=== PATIENT | female | born 1965 | race Caucasian/White ===

== ENCOUNTER 2023-03-16 10:55 | Emergency (ER) | payer OTHER, SELFPAY ==
[2023-03-16 11:22] VITALS: BP 122/81; PULSE 71; RESP 18; TEMP 36.5; O2SAT 97
--- NOTE | 2023-03-16 11:35 | ED_ITS ---
HPI - General Adult General Chief complaint: Unspecified Complaint, Adult Stated complaint: Covid Positive Time Seen by Provider: 03/16/23 11:21 History of Present Illness HPI narrative: This 57-year-old female comes in because she tested positive for COVID. She states that she has symptoms of nasal congestion and occasional cough but otherwise feels okay. She does arrive with normal vital signs. She is a kidney transplant recipient and was instructed by her [place] clinicians to come to the nearest ER to receive remdesivir as she is not a candidate for Paxil of it. Related Data Allergies Allergy/AdvReac Type Severity Reaction Status Date / Time lisinopril Allergy Mild Verified 03/16/23 11:26 Penicillins Allergy Mild Verified 03/16/23 11:26 Review of Systems Status of ROS: Reports: 10 or more systems reviewed and unremarkable except as noted in History and below Narrative: Constitutional: No fevers, no weight gain or loss. Eyes: No discharge. No vision changes. HENT: No sore throat, no ear pain. She reports nasal congestion. Cardiovascular: No chest pain, no palpitations. Respiratory: No shortness of breath, no wheezes. Gastrointestinal: No abdominal pain, no vomiting, no diarrhea. Genitourinary: No dysuria, no hematuria. Musculoskeletal: Normal range of motion. Skin: No rashes, no pruritis. Neurological: No dizziness, weakness, sensory change, speech change. Endo/Heme/Allergies: No bruising or bleeding. No polydipsia. Pysch: no suicidality, no anxiety, no insomnia. All other systems reviewed and are negative. Exam Narrative: Exam Narrative: Constitutional: Well-developed, well-nourished, no acute distress. HEENT: Normocephalic, atraumatic. Neck: Normal range of motion. Nontender. Supple. Heart: Regular. No murmurs. Normal rate. Intact distal pulses. Lungs: Clear to auscultation. No chest discomfort. No wheezes, rhonchi, or rales. Abdomen: Normal bowel sounds. Nontender. No rebound tenderness. Genitalia: Deferred. Back: No midline tenderness. Normal range of motion. Extremities: Normal range of motion. No injury. Skin: Intact. No rash. Warm. No erythema or pallor. Neurologic: No altered sensation. No weakness. Alert and oriented. Psychiatric: No suicidality. No anxiety or depression. No insomnia. Nursing notes and vitals signs are reviewed. Const: Vital Signs, click to edit/add: Vital Signs - 24 hr 03/16/23 11:22 Temperature 97.7 F Pulse Rate [Right Pulse Oximeter] 71 Respiratory Rate 18 Blood Pressure [Ri ght Upper Arm] 122/81 Pulse Oximetry 97 Oxygen Delivery Me thod Room Air Course Vital Signs Vital signs: Initial Vital Signs Temperature 97.7 F 03/16/23 11:22 Temperature Source Temporal Artery Scan 03/16/23 11:22 Pulse Rate 71 03/16/23 11:22 Pulse Rhythm Regular 03/16/23 11:22 Pulse Strength 3+ Normal 03/16/23 11:22 Respiratory Rate 18 03/16/23 11:22 Blood Pressure 122/81 03/16/23 11:22 Blood Pressure Mean 94 03/16/23 11:22 Pulse Oximetry 97 03/16/23 11:22 Oxygen Delivery Method Room Air 03/16/23 11:22 Vital Signs Temperature 97.7 F 03/16/23 11:22 Pulse Rate 71 03/16/23 11:22 Respiratory Rate 18 03/16/23 11:22 Blood Pressure 122/81 03/16/23 11:22 Pulse Oximetry 97 03/16/23 11:22 Oxygen Delivery Method Room Air 03/16/23 11:22 Temperature 97.7 F 03/16/23 11:22 Pulse Rate 71 03/16/23 11:22 Respiratory Rate 18 03/16/23 11:22 Blood Pressure 122/81 03/16/23 11:22 Pulse Oximetry 97 03/16/23 11:22 Oxygen Delivery Method Room Air 03/16/23 11:22 Medical Decision Making MDM Narrative Medical decision making narrative: This patient is a kidney transplant recipient who is now positive for COVID. She received the initial loading dose of remdesivir intravenously. An order is in place for 2 more doses each of the next 2 days. The patient has normal vital signs and is in no acute distress. She is okay to be discharged today and will return he to the next 2 days for a nurse's visit to administer the next 2 doses of remdesivir. Discharge Plan Discharge Clinical Impression: COVID-19 Patient Disposition: Home, Self-Care Additional Instructions: Return each of the next 2 days for subsequent dosings of remdesivir. Use [id number] medicines also as needed and directed. Follow up with MD or return otherwise if worsening. Stand Alone Forms: [employer] Info Instructions
== END 2023-03-16 13:30 | disposition home or self-care (01) ==
LOC: ED 12:13
PROVIDERS: Emergency Provider Emergency Medicine Emergency Medical Services; PCP Family Medicine
DX: U07.1 COVID-19 (principal)
CPT/HCPCS: 99283; 99284; J7050

== ENCOUNTER 2023-03-18 11:03 | Outpatient (RCR) | payer OTHER, SELFPAY ==
[2023-03-17 11:45] VITALS: BP 105/68; PULSE 80; RESP 16; TEMP 36.8; O2SAT 95
[2023-03-17 13:10] VITALS: BP 108/68; PULSE 68; RESP 16; TEMP 36.8; O2SAT 96
--- NOTE | 2023-03-17 13:19 | PC.NURSE ---
tolerated infusion. VSS. pt to return to floor 03/18 at 1130 for next dose. IV remains in left AC, patent, wrapped with coban for tmws infusion.
[2023-03-17] MEDS: 0.9 % SODIUM CHLORIDE 250 ml IV (13:25)
[2023-03-18 11:15] VITALS: BP 117/67; PULSE 74; RESP 20; TEMP 36.7; O2SAT 99
== END 2023-11-13 23:59 | disposition home or self-care (01) ==
LOC: MS OUT 11:03
PROVIDERS: PCP Family Medicine; Visit Provider Family Medicine
DX: U07.1 COVID-19 (principal)
CPT/HCPCS: 96365; 99211; J7050